=== PATIENT | female | born 1935 | race Caucasian/White ===

== ENCOUNTER → 2016-06-16 | Day surgery (SDC) | payer MEDICARE ==
[~2016-06-16] MED LIST: Glucagon,Human Recombinant 1 MG Vial IVPUSH ONE; LORazepam 2 MG/ML MDV IVPUSH ONE; Meperidine PF 50 MG/ML Syringe IVPUSH PRN; Ondansetron 4 MG/2 ML SDV IVPUSH PRN; Propofol 200 MG/20 ML SDV ONE; fentaNYL 100 MCG/2 ML SDV IVPUSH PRN; fentaNYL 100 MCG/2 ML SDV ONE
--- NOTE | 2016-06-16 19:42 | EDM.PDOC ---
ED HPI GI/ABDOMINAL - General Chief Complaint: Gastrointestinal Problem Stated Complaint: CHOKING Time Seen by Provider: 06/16/16 18:43 Source of Information: Reports: Patient History Limitations: Reports: No limitations - History of Present Illness INITIAL COMMENTS - FREE TEXT/NARRATIVE: Patient is 81-year-old female who presents to the ED with a sensation of food is stuck within her esophagus. She states this evening while eating salmon and green beans she developed this pressure sensation in her esophagus with the sensation that something was stuck in her throat. Patient started to choke and vomited up minute quantity of liquid and food. Sensation remained thus she presented to the E.D. for further evaluation. States she has been able to keep swallow oral secretions with no emesis. She has not tried to drink any additional liquids in fear of vomiting. States she has a history of GERD and takes omeprazole daily. She has no history of Diaz's esophagus, esophageal strictures, or previous episode of large to food in esophagus. She has had EGD in the past many years ago. She denies any chest pain, short of breath, diaphoresis, pain radiating to his neck/arm/back, or any additional complaints. Timing/Duration: Reports: Constant Location: other (Esophagus) Quality: Reports: other (Pressure) Severity: mild Worsens with: Reports: other (Drinking/eating) Associated Symptoms (-Female): Reports: loss of appetite, nausea/vomiting. 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: Musculoskeletal History: Reports: Arthritis, Fracture, Other (see below) Other Musculoskeletal History: 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 Denies: fever, chills Respiratory: Denies: Shortness of Breath, Cough, Sputum Cardiovascular: Denies: Chest pain, Lightheadedness, Palpitations GI/Abdominal: Reports: Abdominal pain (Epigastric), Vomiting. Denies: Constipation, Diarrhea : Reports: no symptoms Musculoskeletal: Denies: neck pain, shoulder pain, arm pain, back pain Neurological: Denies: Dizziness ED EXAM, GI/ABD - Physical Exam Exam: See Below Exam Limited By: No limitations General Appearance: alert, WD/WN, no apparent distress, cachetic Eyes: bilateral: normal appearance Ears: hearing grossly normal Nose: normal inspection Throat/Mouth: Normal oropharynx, Normal voice, No airway compromise Head: atraumatic, normocephalic Neck: normal inspection, supple, non-tender, full range of motion Respiratory/Chest: no respiratory distress, lungs clear, normal breath sounds, no accessory muscle use Cardiovascular: normal peripheral pulses, regular rate, rhythm GI/Abdominal: normal bowel sounds, soft, no organomegaly, no distention, other ( Mild tenderness noted to the epigastric region with palpation.). No: hyperactive bowel sounds, guarding, rebound, McBurney's sign, Jolley's sign Back Exam: normal inspection, full range of motion. No: CVA tenderness (L), CVA tenderness (R) Extremities: normal inspection, non-tender, no pedal edema Neurological: alert, oriented, CN II-XII intact, normal cognition, no motor/ sensory deficits Psychiatric: normal affect, normal mood Skin Exam: Warm, Dry, Intact, Normal color Course - Vital Signs Last Recorded V/S: Last Vital Signs Temp 97.9 F 06/16/16 17:50 Pulse 98 06/16/16 17:50 Resp 12 06/16/16 21:17 BP 179/93 H 06/16/16 17:50 Pulse Ox 100 06/16/16 21:17 - Orders/Labs/Meds Orders: Active Orders 24 hr Category Date Time Status Communication Order [RC] ROUTINE Care 06/16/16 22:16 Active Cooling Warming Measures [RC] ASDIRECTED Care 06/16/16 22:17 Active EKG Documentation Completion [RC] STAT Care 06/16/16 20:17 Active Notify Provider [RC] ASDIRECTED Care 06/16/16 22:17 Active Oxygen Therapy [RC] ASDIRECTED Care 06/16/16 22:17 Active Pulse Oximetry [RC] ASDIRECTED Care 06/16/16 22:17 Active Vital Signs [RC] Q15M Care 06/16/16 22:17 Active Meperidine [Demerol] Med 06/16/16 22:17 Active 12.5 mg IVPUSH ONETIME PRN Ondansetron [Zofran] Med 06/16/16 22:17 Active 4 mg IVPUSH ONETIME PRN Schedule Procedure [COMM] Stat Oth 06/16/16 21:16 Ordered Medication Orders Meperidine HCl (Demerol) 12.5 mg IVPUSH ONETIME PRN PRN Reason: Shivering Ondansetron HCl (Zofran) 4 mg IVPUSH ONETIME PRN PRN Reason: Nausea/Vomiting Labs: Laboratory Tests 06/16/16 06/16/16 Range/Units 18:10 18:10 WBC 5.16 (3.98-10.04) K/mm3 RBC 4.30 (3.98-5.22) M/mm3 Hgb 12.6 (11.2-15.7) gm/L Hct 38.9 (34.1-44.9) % MCV 90.5 (79.4-94.8) fl MCH 29.3 (25.6-32.2) pg MCHC 32.4 (32.2-35.5) g/dl RDW Std Deviation 47.8 H (36.4-46.3) fL Plt Count 161 L (182-369) K/mm3 MPV 9.4 (9.4-12.3) fl Neut % (Auto) 57.2 (34.0-71.1) % Lymph % (Auto) 29.8 (19.3-51.7) % Cochran % (Auto) 8.1 (4.7-12.5) % Eos % (Auto) 4.1 (0.7-5.8) Baso % (Auto) 0.6 (0.1-1.2) % Neut # 2.95 (1.56-6.13) K/mm3 Lymph # 1.54 (1.18-3.74) K/mm3 Cochran # 0.42 H (0.24-0.36) K/mm3 Eos # 0.21 (0.04-0.36) K/mm3 Baso # 0.03 (0.01-0.08) K/mm3 Sodium 140 (136-145) mEq/L Potassium 3.7 (3.5-5.1) mEq/L Chloride 102 (98-107) mEq/L Carbon Dioxide 28 (21-32) mEq/L Anion Gap 13.7 (5-15) BUN 18 (7-18) mg/dL Creatinine 0.8 (0.55-1.02) mg/dL Est Cr Clr Drug Dosing 41.86 mL/min Estimated GFR (MDRD) > 60 (>60) mL/min BUN/Creatinine Ratio 22.5 H (14-18) Glucose 119 H (83-115) mg/dL Calcium 9.3 (8.5-10.1) mg/dL Total Bilirubin 0.6 (0.2-1.0) mg/dL AST 35 (15-37) U/L ALT 30 (14-59) U/L Alkaline Phosphatase 116 (46-116) U/L Total Protein 8.1 (6.4-8.2) g/dl Albumin 4.0 (3.4-5.0) g/dl Globulin 4.1 gm/dL Albumin/Globulin Ratio 1.0 (1-2) Lipase 169 (73-393) U/L Meds: Medications Generic Name Dose Route Start Last Admin Trade Name Freq PRN Reason Stop Dose Admin Meperidine HCl 12.5 mg 06/16/16 22:17 Demerol IVPUSH ONETIME PRN Shivering Ondansetron HCl 4 mg 06/16/16 22:17 Zofran IVPUSH ONETIME PRN Nausea/Vomiting Discontinued Medications Generic Name Dose Route Start Last Admin Trade Name Freq PRN Reason Stop Dose Admin Fentanyl Confirm 06/16/16 21:46 Sublimaze Administered 06/16/16 21:47 Dose 100 mcg .ROUTE .STK-MED ONE Fentanyl 50 mcg 06/16/16 22:17 Sublimaze IVPUSH 06/16/16 22:33 Q5M PRN Pain Glucagon 1 mg 06/16/16 19:01 06/16/16 19:11 Glucagen IVPUSH 06/16/16 19:02 1 mg ONETIME ONE Administration Lorazepam 0.5 mg 06/16/16 19:01 06/16/16 19:08 Ativan IVPUSH 06/16/16 19:02 0.5 mg ONETIME ONE Administration Propofol Confirm 06/16/16 21:45 Diprivan 20 Ml Administered 06/16/16 21:46 Dose 200 mg .ROUTE .STK-MED ONE - Re-Assessments/Exams Free Text/Narrative Re-Assessment/Exam: Patient failed the swallow test. Peripheral IV has been started. Will order glucagon 1 mg IV and also Ativan 0.5 mg IV. Chest x-ray reviewed with Dr. Hernández. Patient has hyperinflation with underlying parenchymal lung disease. Flattened diaphragm. Mild cardiomegaly. No acute findings noted. Final interpretation is pending. X-ray of the chest impression: Presumed chronic findings as described above. 06/16/16 20:18 Reassessment, patient still unable to swallow any liquids. Presume food bolus still loss within the lower esophagus. Ordered basic labs and an EKG in preparation for surgery. Will contact Dr. James radiation control technician general surgeon. 06/16/16 20:[address] James on-call general surgeon he will be in to see the patient. 06/16/16 20:44 EKG sinus rhythm at a rate of 97, normal P axis, left axis deviation, borderline repolarization abnormality, prolonged QT interval, WA interval is 199, no acute ST changes noted. Labs reviewed with no concerning findings. Dr. James has evaluated the patient in the ED. He'll be taking the patient to surgery. OR staff was notified. Patient went to surgery unknown time documented. Departure - Departure Time of Disposition: 21:10 Disposition: Admitted As Inpatient 66 Condition: fair Clinical Impression: Esophageal obstruction due to food impaction - My Orders Last 24 Hours: My Active Orders 06/16/16 20:17 EKG Documentation Completion [RC] STAT - Assessment/Plan Last 24 Hours: My Active Orders 06/16/16 20:17 EKG Documentation Completion [RC] STAT
--- NOTE | 2016-06-16 20:09 | CR ---
Chest: Portable view of the chest was obtained. Comparison: No previous study. Heart size is normal. Mild tortuosity of the thoracic aorta is seen. Apical pleural thickening is seen. Mild increased lung markings are seen particularly within both upper lungs most likely representing fibrosis although old film would be needed to confirm. No alveolar type densities are seen. Bony structures are osteopenic. Impression: 1. Presumed chronic findings as described above. Diagnostic code #2
--- NOTE | 2016-06-16 21:10 | PCM.PREANE ---
Preanesthetic Assessment - Anesthesia/Transfusion/Family Hx Anesthesia History: Prior Anesthesia Without Reaction Type of Anesthesia Reaction: Other (see below) Family History of Anesthesia Reaction: No Transfusion History: Prior Transfusion Without Reaction Intubation History: Unknown - Review of Systems General: No Symptoms Pulmonary: No Symptoms Cardiovascular: No Symptoms Gastrointestinal: No symptoms (GERD controled with medications ) Neurological: Numbness (fingers due to raynauds ) Other: Reports: None - Physical Assessment NPO Status Date: 06/16/16 NPO Status Time: 18:00 O2 Sat by Pulse Oximetry: 100 Respiratory Rate: 12 Vital Signs: Last Vital Signs Temp 36.6 C 06/16/16 17:50 Pulse 98 06/16/16 17:50 Resp 12 06/16/16 17:50 BP 179/93 H 06/16/16 17:50 Pulse Ox 100 06/16/16 17:50 Height: 1.68 m Weight: 48.081 kg ASA Class: 2E Mental Status: Alert & Oriented x3 Dentition: Reports: Broken Tooth/Teeth, Missing Tooth/Teeth (poor dentiton, multiple missing and broke teeth) Thyro-Mental Finger Breadths: 3 Mouth Opening Finger Breadths: 3 ROM/Head Extension: Full Lungs: Clear to auscultation, Normal respiratory effort Cardiovascular: Regular Rate, Regular Rhythm - Lab Values: Laboratory Last Values WBC 5.16 K/mm3 (3.98-10.04) 06/16/16 18:10 RBC 4.30 M/mm3 (3.98-5.22) 06/16/16 18:10 Hgb 12.6 gm/L (11.2-15.7) 06/16/16 18:10 Hct 38.9 % (34.1-44.9) 06/16/16 18:10 MCV 90.5 fl (79.4-94.8) 06/16/16 18:10 MCH 29.3 pg (25.6-32.2) 06/16/16 18:10 MCHC 32.4 g/dl (32.2-35.5) 06/16/16 18:10 RDW Std Deviation 47.8 fL (36.4-46.3) H 06/16/16 18:10 Plt Count 161 K/mm3 (182-369) L 06/16/16 18:10 MPV 9.4 fl (9.4-12.3) 06/16/16 18:10 Neut % (Auto) 57.2 % (34.0-71.1) 06/16/16 18:10 Lymph % (Auto) 29.8 % (19.3-51.7) 06/16/16 18:10 Barron % (Auto) 8.1 % (4.7-12.5) 06/16/16 18:10 Eos % (Auto) 4.1 (0.7-5.8) 06/16/16 18:10 Baso % (Auto) 0.6 % (0.1-1.2) 06/16/16 18:10 Neut # 2.95 K/mm3 (1.56-6.13) 06/16/16 18:10 Lymph # 1.54 K/mm3 (1.18-3.74) 06/16/16 18:10 Barron # 0.42 K/mm3 (0.24-0.36) H 06/16/16 18:10 Eos # 0.21 K/mm3 (0.04-0.36) 06/16/16 18:10 Baso # 0.03 K/mm3 (0.01-0.08) 06/16/16 18:10 Sodium 140 mEq/L (136-145) 06/16/16 18:10 Potassium 3.7 mEq/L (3.5-5.1) 06/16/16 18:10 Chloride 102 mEq/L (98-107) 06/16/16 18:10 Carbon Dioxide 28 mEq/L (21-32) 06/16/16 18:10 Anion Gap 13.7 (5-15) 06/16/16 18:10 BUN 18 mg/dL (7-18) 06/16/16 18:10 Creatinine 0.8 mg/dL (0.55-1.02) 06/16/16 18:10 Est Cr Clr Drug Dosing 41.86 mL/min 06/16/16 18:10 Estimated GFR (MDRD) > 60 mL/min (>60) 06/16/16 18:10 BUN/Creatinine Ratio 22.5 (14-18) H 06/16/16 18:10 Glucose 119 mg/dL (83-115) H 06/16/16 18:10 Calcium 9.3 mg/dL (8.5-10.1) 06/16/16 18:10 Total Bilirubin 0.6 mg/dL (0.2-1.0) 06/16/16 18:10 AST 35 U/L (15-37) 06/16/16 18:10 ALT 30 U/L (14-59) 06/16/16 18:10 Alkaline Phosphatase 116 U/L (46-116) 06/16/16 18:10 Total Protein 8.1 g/dl (6.4-8.2) 06/16/16 18:10 Albumin 4.0 g/dl (3.4-5.0) 06/16/16 18:10 Globulin 4.1 gm/dL 06/16/16 18:10 Albumin/Globulin Ratio 1.0 (1-2) 06/16/16 18:10 Lipase 169 U/L (73-393) 06/16/16 18:10 - Allergies Allergies/Adverse Reactions: Allergies Allergy/AdvReac Type Severity Reaction Status Date / Time Penicillins Allergy Diarrhea Verified 06/16/16 18:10 - Blood Blood Available: No Product(s) Available: None - Acknowledgements Anesthesia Type Planned: General Anesthesia Pt an Appropriate Candidate for the Planned Anesthesia: Yes Alternatives and Risks of Anesthesia Discussed w Pt/Guardian: Yes Pt/Guardian Understands and Agrees with Anesthesia Plan: Yes PreAnesthesia Questionnaire HEENT History: Reports: Cataract, Impaired vision Other HEENT History: wears eyeglasses Gastrointestinal History: 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: 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: Musculoskeletal History: Reports: Arthritis, Fracture, Other (see below) Other Musculoskeletal History: 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, fx ankle - Infectious Disease History Infectious Disease History: Reports: Chicken pox, Measles - Past Surgical History HEENT Surgical History: Reports: Cataract surgery Female Surgical History: Reports: Hysterectomy - SUBSTANCE USE Smoking Status *Q: Never Smoker Second Hand Smoke Exposure: No Recreational Drug Use History: No - HOME MEDS Home Medications: Home Meds Aspirin [Halfprin] 81 mg PO DAILY 06/16/16 [History] Omeprazole Magnesium [Prilosec Otc] 20 mg PO DAILY 06/16/16 [History] - CURRENT (IN HOUSE) MEDS Current Meds: Current Medications Discontinued Medications Glucagon (Glucagen) 1 mg IVPUSH ONETIME ONE Stop: 06/16/16 19:02 Last Admin: 06/16/16 19:11 Dose: 1 mg Lorazepam (Ativan) 0.5 mg IVPUSH ONETIME ONE Stop: 06/16/16 19:02 Last Admin: 06/16/16 19:08 Dose: 0.5 mg Preanesthetic Assessment - PHYSICAL ASSESSMENT O2 Sat by Pulse Oximetry: 100 RR: 12 Vital Signs: Last Vital Signs Temp 36.6 C 06/16/16 17:50 Pulse 98 06/16/16 17:50 Resp 12 06/16/16 17:50 BP 179/93 H 06/16/16 17:50 Pulse Ox 100 06/16/16 17:50 Height: 1.68 m Weight: 48.081 kg - LAB Values: Laboratory Last Values WBC 5.16 K/mm3 (3.98-10.04) 06/16/16 18:10 RBC 4.30 M/mm3 (3.98-5.22) 06/16/16 18:10 Hgb 12.6 gm/L (11.2-15.7) 06/16/16 18:10 Hct 38.9 % (34.1-44.9) 06/16/16 18:10 MCV 90.5 fl (79.4-94.8) 06/16/16 18:10 MCH 29.3 pg (25.6-32.2) 06/16/16 18:10 MCHC 32.4 g/dl (32.2-35.5) 06/16/16 18:10 RDW Std Deviation 47.8 fL (36.4-46.3) H 06/16/16 18:10 Plt Count 161 K/mm3 (182-369) L 06/16/16 18:10 MPV 9.4 fl (9.4-12.3) 06/16/16 18:10 Neut % (Auto) 57.2 % (34.0-71.1) 06/16/16 18:10 Lymph % (Auto) 29.8 % (19.3-51.7) 06/16/16 18:10 Barron % (Auto) 8.1 % (4.7-12.5) 06/16/16 18:10 Eos % (Auto) 4.1 (0.7-5.8) 06/16/16 18:10 Baso % (Auto) 0.6 % (0.1-1.2) 06/16/16 18:10 Neut # 2.95 K/mm3 (1.56-6.13) 06/16/16 18:10 Lymph # 1.54 K/mm3 (1.18-3.74) 06/16/16 18:10 Barron # 0.42 K/mm3 (0.24-0.36) H 06/16/16 18:10 Eos # 0.21 K/mm3 (0.04-0.36) 06/16/16 18:10 Baso # 0.03 K/mm3 (0.01-0.08) 06/16/16 18:10 Sodium 140 mEq/L (136-145) 06/16/16 18:10 Potassium 3.7 mEq/L (3.5-5.1) 06/16/16 18:10 Chloride 102 mEq/L (98-107) 06/16/16 18:10 Carbon Dioxide 28 mEq/L (21-32) 06/16/16 18:10 Anion Gap 13.7 (5-15) 06/16/16 18:10 BUN 18 mg/dL (7-18) 06/16/16 18:10 Creatinine 0.8 mg/dL (0.55-1.02) 06/16/16 18:10 Est Cr Clr Drug Dosing 41.86 mL/min 06/16/16 18:10 Estimated GFR (MDRD) > 60 mL/min (>60) 06/16/16 18:10 BUN/Creatinine Ratio 22.5 (14-18) H 06/16/16 18:10 Glucose 119 mg/dL (83-115) H 06/16/16 18:10 Calcium 9.3 mg/dL (8.5-10.1) 06/16/16 18:10 Total Bilirubin 0.6 mg/dL (0.2-1.0) 06/16/16 18:10 AST 35 U/L (15-37) 06/16/16 18:10 ALT 30 U/L (14-59) 06/16/16 18:10 Alkaline Phosphatase 116 U/L (46-116) 06/16/16 18:10 Total Protein 8.1 g/dl (6.4-8.2) 06/16/16 18:10 Albumin 4.0 g/dl (3.4-5.0) 06/16/16 18:10 Globulin 4.1 gm/dL 06/16/16 18:10 Albumin/Globulin Ratio 1.0 (1-2) 06/16/16 18:10 Lipase 169 U/L (73-393) 06/16/16 18:10 - ALLERGIES Allergies/Adverse Reactions: Allergies Allergy/AdvReac Type Severity Reaction Status Date / Time Penicillins Allergy Diarrhea Verified 06/16/16 18:10
--- NOTE | 2016-06-16 23:11 | PCM.OPNOTE ---
- General Post-Op/Procedure Note Date of Surgery/Procedure: 06/16/16 Operative Procedure(s): dysphagia from fish bolus stuck in esophagus Findings: fish in the esophagus Pre Op Diagnosis: dyspahgis and obstructed esphagus due to fish Post-Op Diagnosis: Same Anesthesia Technique: General ET tube Primary Surgeon: Stanley James EBL in mLs: 0 Complications: None Condition: Good
--- NOTE | 2016-06-16 23:16 | PCM48HPAN ---
Post Anesthesia Note - EVALUATION WITHIN 48HRS OF ANESTHETIC Vital Signs in Normal Range: Yes Patient Participated in Evaluation: Yes Respiratory Function Stable: Yes Airway Patent: Yes Cardiovascular Function Stable: Yes Hydration Status Stable: Yes Pain Control Satisfactory: Yes Nausea and Vomiting Control Satisfactory: Yes Mental Status Recovered: Yes
[2016-06-16 23:52] VITALS: BP 157/75
--- NOTE | 2016-06-17 08:02 | HP ---
DATE OF ADMISSION: 06/16/2016 HISTORY OF PRESENT ILLNESS: This is an 81-year-old who at 6 o'clock this evening was eating some salmon and it stuck in the distal end of her esophagus and she came into the emergency room. The patient states that the emergency room doctor attempted to relieve the problem medically but was unsuccessful. Glucagon was used. The patient states that she has had problems with dysphagia for the last 2 years and about the last year she has lost about 30 pounds. She seeks help from family physician in [place] and they wanted her to have an EGD, but she has refused. She was told in [place], [place] that it was too risky, but was unable to say what the risk was. 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 ALLERGIES: Penicillin. CURRENT MEDICATIONS: Per medication reconciliation form. Home medications consist of aspirin and omeprazole. FAMILY HISTORY: Not known by the patient. REVIEW OF SYSTEMS: No chest pain or shortness of breath, cough, hoarseness, wheezing, fainting, weakness, numbness, convulsions, nausea, or vomiting. Has inability to swallow. LABORATORY DATA: Shows white count of 5000, hemoglobin 12, platelet count is 161,000. Sodium 140, potassium 3.1, chloride is 102, CO2 is 28. Her creatinine is 0.1, BUN 18. PHYSICAL EXAMINATION: GENERAL: Reveals a thin female. VITAL SIGNS: Weight of 48 kg. Temperature 97, pulse 98, blood pressure 179/93, respiratory rate 20. EYES: Sclerae white. Extraocular muscle motion normal. ORAL CAVITY: Shows poor dentition. NECK: Supple. No nodes. No thyromegaly. LUNGS: Breath sounds equal bilaterally. HEART: Tones are regular rate. ABDOMEN: Soft. No tenderness, guarding, or rebound. EXTREMITIES: Upper and lower extremities, no angulation deformities. NEUROLOGIC: III through XII cranial nerves are intact. No sensorineural deficit. Does have difficulty ambulating because of her arthritis. She has typical arthritic deformities of her hand. ASSESSMENT: 1. Rheumatoid arthritis. 2. Obstruction of the distal esophagus. 3. Long history of dysphagia with weight loss. PLAN: We will proceed with EGD and possible dilatation. Risk and complications discussed. He understands and consents. MMODAL /[id number]
--- NOTE | 2016-06-17 08:02 | OR ---
DATE OF OPERATION: 06/16/2016 SURGEON: Stanley James MD PREOPERATIVE DIAGNOSIS: Dysphagia secondary to obstructive esophagus. POSTOPERATIVE DIAGNOSIS: Dysphagia secondary to obstructive esophagus. OPERATION PERFORMED: Esophagogastroduodenoscopy. FINDINGS: An obstructed esophagus except for fish boluses lodged in the esophagus. I suspect that the patient has improper peristalsis. The second portion of the duodenum and duodenal bulb were unremarkable. Antrum, body, and cardia of the stomach showed stomach full of fish. J-maneuver showed intact hiatus. Partial disimpaction of the fish from the esophagus. DESCRIPTION OF PROCEDURE: The patient was taken to the operating room, placed in a supine position, given general anesthetic and intubated, placed in left lateral position. Bite block was inserted. Video Olympus gastroscope placed in the posterior oropharynx under direct vision, threaded past the cricopharyngeus, down to about 30 cm where a fish was encountered very soft. I was able to pass the scope through this fish into the stomach which was also full of fish and passed through the pylorus and second portion of duodenum. It was then slowly withdrawn showing the duodenum, duodenal bulb, pyloric channel. J-maneuver was performed. The scope was then advanced to about 30 cm where the fish accumulated and this was pushed a portion of it down into the stomach and a portion of it was removed using a basket snare. When it was reduced but not completely removed and the passageway was felt to be secured into the stomach, the procedure was terminated. As discussed with the that the patient placed on a clear liquid diet, stand and use gravity to remove the rest of the fish from her esophagus. Stay on a clear liquid diet for 2 days and follow and see me up in the clinic. ANESTHESIA: ESTIMATED BLOOD LOSS: MMODAL /[id number]
== END | disposition home or self-care (01) ==
LOC: JD.ED 17:50 → JD.SDS 21:30
PROVIDERS: ATTEND Surgery
PROC: 0DJ08ZZ Inspection of Upper Intestinal Tract, Via Natural or Artificial Opening Endoscopic (ICD-10-PCS; principal; 2016-06-16)
DX: T18.128A Food in esophagus causing other injury, initial encounter (principal); R13.10 Dysphagia, unspecified; Z88.0 Allergy status to penicillin; Z79.82 Long term (current) use of aspirin; Z79.899 Other long term (current) drug therapy; K21.9 Gastro-esophageal reflux disease without esophagitis; M19.90 Unspecified osteoarthritis, unspecified site; M06.9 Rheumatoid arthritis, unspecified; Z86.718 Personal history of other venous thrombosis and embolism
CPT/HCPCS: 36415; 43235; 71010; 80053; 83690; 85025; 93005; J1610; J2060; J3010; 00740; 96374; 96375; 99285; 99285-25; J2704